=== PATIENT | female | born 1980 | race Caucasian/White ===

== ENCOUNTER → 2021-01-16 | Outpatient (CLI) | payer BC ==
[~2021-01-16] MED LIST: ISOVUE-300 61% 50ML VIAL As Ordered ONE; PROHANCE 279.3MG/ML 5ML VIAL As Ordered ONE
--- NOTE | 2021-01-16 17:03 | REP ---
INDICATION: JOINT DISORDERS RT HIP FEMORAL ACETABULAR IMPING. COMPARISON: None. TECHNIQUE: The procedure was performed under the direction supervision of Dr. Silva. The benefits and risks including but not limited to pain, infection, bleeding and anaphylaxis were explained to the patient and informed consent was obtained. The right femoral neck was localized using fluoroscopic guidance. Skin was prepped and draped in a sterile fashion. 1% lidocaine was used as a local anesthetic. Using fluoroscopic guidance, and last image hold technology, a 22 gauge spinal needle was inserted and advanced to the femoral neck. 0.5 ml of Isovue-300 was injected to verify placement. 11 ml of a solution containing 20 ml of sterile saline and 0.15 ml of ProHance was injected into the joint. The needle was removed and the patient was taken to MRI for postprocedural imaging. The patient tolerated the procedure well and there were no immediate complications. Less than 6 seconds of fluoro time was utilized for this procedure. FINDINGS: None IMPRESSION: Fluoro guidance for right hip MRI arthrogram injection. <Electronically signed by Daniel Powers > 01/16/21 [id number] <Electronically signed by Bronson Silva > 01/16/21 1707
--- NOTE | 2021-01-16 17:03 | REP ---
INDICATION: JOINT DISORDERS RT HIP FEMORAL ACETABULAR IMPING. COMPARISON: No comparison radiographs are available.. TECHNIQUE: Precontrast imaging includes coronal T1 and T2-weighted scans of both hips. Precontrast high-resolution smaller field of view axial, coronal and sagittal T2 fat sat images are acquired of the right hip. The intra-articular injection procedure is performed and dictated separately. Postcontrast T1 fat sat images are acquired in all 3 planes. FINDINGS: Pre contrast injected images of both hips demonstrate bilateral small hip joint effusions, left a little larger than right. Cortical and medullary bone signal intensity are normal in the proximal femurs bilaterally. There is no evidence to suggest avascular necrosis. No periarticular fluid collection is appreciated. There is a tiny sliver of T2 fluid adjacent the greater trochanter on the right which may reflect trochanteric tendon 0 bursitis. There is good filling and enhancement of the right hip articulation on post injection images. These demonstrate mild inferior femoroacetabular spurring. Head neck junction morphology is normal. Ligamentum teres is intact. No loose body is seen. There is no visible acetabular cartilage labral tear. There may be subtle fraying of the anterior portion of the acetabular labral cartilage. Study is otherwise unremarkable. IMPRESSION: Pre-injection small bilateral hip joint effusions. Mild for osteoarthritic femoroacetabular spurring. No acetabular labral cartilage tear. <Electronically signed by Bronson Silva > 01/16/21 [id number]
== END ==
LOC: M RADPRO 06:54
PROVIDERS: ATTEND Specialist
DX: M25.851 Other specified joint disorders, right hip (principal)
CPT/HCPCS: 27093; 73723; 77002; A9576; Q9967

== ENCOUNTER → 2024-03-15 | Outpatient (CLI) | payer BC | LOC: M PAIN 13:00 | PROVIDERS: ATTEND Nurse Practitioner Family | DX: M79.12 Myalgia of auxiliary muscles, head and neck (principal); G89.29 Other chronic pain; K21.9 Gastro-esophageal reflux disease without esophagitis; M06.9 Rheumatoid arthritis, unspecified; Z86.718 Personal history of other venous thrombosis and embolism; Z79.890 Hormone replacement therapy; Z79.899 Other long term (current) drug therapy ==

== ENCOUNTER → 2024-06-18 | Outpatient (CLI) | payer BC | LOC: M PAIN 10:45 | PROVIDERS: ATTEND Nurse Practitioner Family | DX: M79.10 Myalgia, unspecified site (principal); G89.29 Other chronic pain; K21.9 Gastro-esophageal reflux disease without esophagitis; Z79.01 Long term (current) use of anticoagulants; Z79.890 Hormone replacement therapy; Z79.899 Other long term (current) drug therapy; Z88.1 Allergy status to other antibiotic agents; Z88.8 Allergy status to other drugs, medicaments and biological substances ==

== ENCOUNTER → 2024-08-09 | Outpatient (CLI) | payer BC ==
[~2024-08-09] MED LIST changes: -ISOVUE-300 61% 50ML VIAL As Ordered ONE; -PROHANCE 279.3MG/ML 5ML VIAL As Ordered ONE; +TRIAMCINOLONE ACETONIDE SUSP 40MG/ML 1ML VIAL As Ordered ONE
== END ==
LOC: M PAIN 10:00
PROVIDERS: ATTEND Anesthesiology
DX: M79.18 Myalgia, other site (principal); G89.29 Other chronic pain; K21.9 Gastro-esophageal reflux disease without esophagitis; M54.2 Cervicalgia; M79.10 Myalgia, unspecified site; Z79.01 Long term (current) use of anticoagulants; Z79.890 Hormone replacement therapy; Z79.899 Other long term (current) drug therapy; Z88.1 Allergy status to other antibiotic agents; Z88.8 Allergy status to other drugs, medicaments and biological substances
CPT/HCPCS: 20552; J0665; J3301

== ENCOUNTER → 2024-10-11 | Outpatient (CLI) | payer BC | LOC: M PAIN 14:00 | PROVIDERS: ATTEND Nurse Practitioner Family | DX: M79.10 Myalgia, unspecified site (principal); G89.29 Other chronic pain; Z79.01 Long term (current) use of anticoagulants; Z79.899 Other long term (current) drug therapy; Z88.1 Allergy status to other antibiotic agents; Z88.8 Allergy status to other drugs, medicaments and biological substances ==